=== PATIENT | female | born 1940 | race Caucasian/White ===

== ENCOUNTER 2016-07-23 | Outpatient (CLI) | payer MEDICARE, OTHER | END 2016-07-23 07:57 | disposition critical access hospital (66) | CPT/HCPCS: A0425; A0429 ==

== ENCOUNTER 2016-07-23 08:14 | Observation (INO) | payer MEDICARE, OTHER ==
[2016-07-23] MEDS ORDERED: LORazepam 2 MG/ML SYRINGE ONE ×3 (15:59→17:55)
[2016-07-23] MEDS ORDERED: SODIUM CHLORIDE FLUSH 0.9% 10 ML SYRINGE IVP PRN (16:10)
[2016-07-23] MEDS ORDERED: HYDROcod/ACETAM 5/325 MG TABLET PO PRN (16:10)
[2016-07-23] MEDS ORDERED: ONDANSETRON 4 MG/2 ML VIAL IVP PRN (16:10)
[2016-07-23] MEDS ORDERED: ACETAMINOPHEN 325 MG TABLET PO PRN (16:10)
[2016-07-23] MEDS ORDERED: LORazepam 2 MG/ML SYRINGE IVP PRN (16:11)
[2016-07-23] MEDS: SODIUM CHLORIDE FLUSH 0.9% 10 ML SYRINGE IVP SCH (21:37)
[2016-07-23] MEDS ORDERED: OLANZapine 10 MG VIAL IM ONE (22:07)
[2016-07-23] MEDS ORDERED: WATER FOR INJECTION,STERILE 10 ML ONE (22:35)
[2016-07-24] MEDS: SODIUM CHLORIDE FLUSH 0.9% 10 ML SYRINGE IVP SCH (06:02)
[2016-07-24] MEDS ORDERED: NAMENDA 21 MG PO SCH (09:00)
[2016-07-24] MEDS ORDERED: ENOXAPARIN 40 MG/0.4 ML SYRINGE SUBQ SCH (09:00)
[2016-07-24] MEDS ORDERED: POLYETHYLENE GLYCOL 3350 17 GM PACKET PO SCH (09:00)
== END 2016-07-24 13:54 | disposition home or self-care (01) ==
DX: R55 Syncope and collapse (principal); I10 Essential (primary) hypertension; G30.9 Alzheimer's disease, unspecified; Z79.899 Other long term (current) drug therapy; I65.23 Occlusion and stenosis of bilateral carotid arteries
CPT/HCPCS: 36415; 70450; 71020; 80053; 80061; 81003; 82607; 82746; 83690; 84484; 85025; 93010; 93306; 93880; 96360; 96372; 96374; 99284; G0378; J2060

== ENCOUNTER 2016-10-14 08:31 | Outpatient (CLI) | payer MEDICARE, OTHER | END 2016-10-14 08:32 | disposition critical access hospital (66) | DX: R55 Syncope and collapse (principal); W18.39XA Other fall on same level, initial encounter; Y92.010 Kitchen of single-family (private) house as the place of occurrence of the external cause | CPT/HCPCS: A0425; A0429 ==

== ENCOUNTER 2016-10-14 08:51 | Emergency (ER) | payer MEDICARE, OTHER ==
--- NOTE | 2016-10-14 09:59 | ED Physician Documentation ---
PD HPI SYNCOPE - Stated complaint Stated Complaint: SYNCOPE - Chief complaint Chief Complaint: Neuro - History obtained from History obtained from: Patient - History of Present Illness Witnessed: Witnessed (by her ) Timing - onset: How many minutes ago (20) Duration: Minutes Preceding symptoms: Unknown (she does not verbalize well due to Parkinsons but is very active around the house.) Associated symptoms: No: Seizure ( says she felt unusual abruptly, say ithose), Headache, Chest pain Contributing factors: No: Recent med change, Just stood up (she was standing in the kitchen, when she had heavy sigh, and seemed to catch her breath. Then eyes rolled back and she then fell to the floor. Had snoring type breathing for a minute or so. No discoloration. 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 No epscific finding.) Recently seen: Not recently seen Review of Systems Constitutional: denies: Fever Nose: denies: Rhinorrhea / runny nose, Congestion Throat: denies: Swollen tonsils Cardiac: denies: Chest pain / pressure Respiratory: denies: Dyspnea, Cough GI: denies: Abdominal Pain, Vomiting, Diarrhea Skin: denies: Rash, Lesions Neurologic: denies: Focal weakness, Numbness PD PAST MEDICAL HISTORY - Past Medical History Neuro: Dementia - Present Medications Home Medications: Ambulatory Orders Medication Instructions Recorded Confirmed Aspirin [Aspirin EC] 81 mg PO DAILY #30 tablet. 07/24/16 Memantine HCl [Namenda Xr] 28 mg PO DAILY 07/24/16 07/24/16 Valacyclovir HCl [Valacyclovir] 1,000 mg PO TID 07/24/16 07/24/16 - Allergies Allergies/Adverse Reactions: Allergies Allergy/AdvReac Type Severity Reaction Status Date / Time No Known Drug Allergies Allergy Verified 10/14/16 11:56 - Social History Does the pt smoke?: No Smoking Status: Never smoker PD ED PE NORMAL - Vitals Vital signs reviewed: Yes - General General: No acute distress, Well developed/nourished, Other (placing and wiping the bedsheet, with some folding and unfolding. She was able to stand and bear weight.) - HEENT HEENT: Ears normal, Moist mucous membranes, Pharynx benign - Neck Neck: Supple, no meningeal sign, No adenopathy - Cardiac Cardiac: RRR, No gallop - Respiratory Respiratory: Clear bilaterally - Abdomen Abdomen: Soft, Non tender - Female Female : Pt declined - Back Back: No spinal TTP - Derm Derm: Normal color, Warm and dry - Extremities Extremities: No tenderness to palpate, Normal ROM s pain - Neuro Neuro: Alert and oriented X 3, No motor deficit - Psych Psych: Other (does not talk interactions) Results - Vitals Vitals: Vital Signs - 24 hr 10/14/16 10/14/16 10/14/16 08:54 11:16 12:22 Temperature 36.6 C Heart Rate 87 63 71 Respiratory 18 18 16 Rate Blood Pressure 127/87 H 112/66 117/61 O2 Saturation 96 99 96 Oxygen O2 Source Room air - Labs Labs: Laboratory Tests 10/14/16 10/14/16 10/14/16 11:13 11:13 11:13 WBC 8.1 RBC 4.16 L Hgb 14.2 Hct 41.6 MCV 100.0 H MCH 34.2 H MCHC 34.2 RDW 13.4 Plt Count 215 MPV 9.5 Neut # 6.7 H Lymph # 0.9 L [place] # 0.5 Eos # 0.0 Baso # 0.0 Absolute Nucleated RBC 0.00 Nucleated RBCs 0.0 Sodium 136 Potassium 4.2 Chloride 100 L Carbon Dioxide 28 Anion Gap 8.0 BUN 17 Creatinine 0.6 Estimated GFR (MDRD) 97 Glucose 101 H Calcium 9.3 Magnesium 2.0 Total Bilirubin 1.0 AST 49 H ALT 42 Alkaline Phosphatase 59 Total Protein 6.4 L Albumin 4.0 Globulin 2.4 Albumin/Globulin Ratio 1.7 Lipase 24 Prolactin 8.82 - Rads (name of study) head CT Radiology: Prelim report reviewed (age related changes, no acute process. ) PD MEDICAL DECISION MAKING - ED course Complexity details: considered differential (2 episodes of abrupt syncope with then improved after several minutes. Had evaluation for brain and cardiovascular causes (MRI, ECG, ECHO, labs). ), d/w patient Departure - Departure Disposition: 01 Home, Self Care Clinical Impression: Episode of syncope Qualifiers: Syncope type: unspecified Qualified Code(s): R55 - Syncope and collapse Condition: Stable Record reviewed to determine appropriate education?: Yes Instructions: ED Fainting Unkn Cause Follow-Up: Katrin Stewart MD [Primary Care Provider] - Comments: Continue current medications, and drink lots of fluids. Follow up with PMD next week, call for an appt. Consider evaluating for potential seizure as a cause. Discharge Date/Time: 10/14/16 12:24
[2016-10-14 11:30] LABS: BASOPHILS % (AUTO) 0.4 %; EOSINOPHILS % (AUTO) 0.4 %; HCT - HEMATOCRIT 41.6 % (37.0-47.0); HGB - HEMOGLOBIN 14.2 g/dL (12.0-16.0); LYMPHOCYTES # (AUTO) 0.9 10^3/uL (1.5-3.5); LYMPHOCYTES % (AUTO) 10.5 %; MEAN CORPUSCULAR HEMOGLOBIN 34.2 pg (27.0-31.0); MEAN CORPUSCULAR HGB CONC 34.2 g/dL (32.0-36.0); MEAN PLATELET VOLUME 9.5 fL (7.9-10.8); MONOCYTES # (AUTO) 0.5 10^3/uL (0.0-1.0); MONOCYTES % (AUTO) 6.3 %; NEUTROPHILS # (AUTO) 6.7 10^3/uL (1.5-6.6); NEUTROPHILS % (AUTO) 82.4 %; RED BLOOD COUNT 4.16 10^6/uL (4.20-5.40); RED CELL DISTRIBUTION WIDTH 13.4 % (12.0-15.0); UNCORRECTED WHITE BLOOD COUNT 8.1 x10^3/uL; WHITE BLOOD COUNT 8.1 x10^3/uL (4.8-10.8)
--- NOTE | 2016-10-14 11:44 | CT Preliminary Report ---
Exam: CT Head W/O IMPRESSION: 1. Generalized age-related cortical atrophic changes. 2. No acute intracranial hemorrhage or depressed calvarial fracture evident. [facility] SITE ID: [id number]
--- NOTE | 2016-10-14 11:47 | CT Report ---
EXAM: CT HEAD EXAM DATE: 10/14/2016 11:01 AM. CLINICAL HISTORY: Fall/syncope. Confusion. COMPARISON: Head CT 07/23/2016. TECHNIQUE: Multiaxial CT images were obtained from the foramen magnum to the vertex. IV contrast: Non e. Reformats: Coronal. Technologist notes patient was uncooperative. In accordance with CT protocol optimization, one or more of the following dose reduction techniques w ere utilized for this exam: automated exposure control, adjustment of mA and/or KV based on patient s ize, or use of iterative reconstructive technique. FINDINGS: Parenchyma: No intraparenchymal hemorrhage. No evidence of mass, midline shift, or CT findings of acu te infarction. Flynn-white differentiation is distinct. Extraaxial Spaces: Normal for age. No subdural or epidural collections identified. Ventricles: The ventricles and cortical sulci are enlarged, consistent with age-related tissue loss. Sinuses: Imaged paranasal sinuses, orbits, and mastoids show no significant abnormality. Bones: No evidence of fracture or calvarial defect. Other: Diffuse chronic microangiopathic white matter changes are evident. IMPRESSION: 1. Generalized age-related cortical atrophic changes. 2. No acute intracranial hemorrhage or depressed calvarial fracture evident. [facility] Referring Provider Line: [phone] SITE ID: [id number]
[2016-10-14 11:58] LABS: ALBUMIN/GLOBULIN RATIO 1.7 (1.0-2.2); CALCIUM 9.3 mg/dL (8.5-10.3); CREATININE 0.6 mg/dL (0.4-1.0); POTASSIUM 4.2 mmol/L (3.5-5.0); TOTAL PROTEIN 6.4 g/dL (6.7-8.2)
[2016-10-14 12:23] VITALS: BP 117/61
== END 2016-10-14 12:24 | disposition home or self-care (01) ==
LOC: EDUNIT# → ED 08:51
DX: R55 Syncope and collapse (principal); G20 Parkinson's disease; F02.80 Dementia in other diseases classified elsewhere, unspecified severity, without behavioral disturbance, psychotic disturbance, mood disturbance, and anxiety; Z79.82 Long term (current) use of aspirin
CPT/HCPCS: 36415; 70450; 80053; 83690; 83735; 84146; 85025; 99284

== ENCOUNTER 2017-01-12 13:35 | Outpatient (CLI) | payer MEDICARE, OTHER ==
[2017-01-12 19:16] LABS: BASOPHILS % (AUTO) 0.3 %; EOSINOPHILS # (AUTO) 0.1 10^3/uL (0.0-0.7); EOSINOPHILS % (AUTO) 1.1 %; HCT - HEMATOCRIT 41.4 % (37.0-47.0); HGB - HEMOGLOBIN 13.9 g/dL (12.0-16.0); LYMPHOCYTES # (AUTO) 1.5 10^3/uL (1.5-3.5); LYMPHOCYTES % (AUTO) 24.3 %; MEAN CORPUSCULAR HEMOGLOBIN 34.2 pg (27.0-31.0); MEAN CORPUSCULAR HGB CONC 33.7 g/dL (32.0-36.0); MEAN CORPUSCULAR VOLUME 101.5 fL (81.0-99.0); MEAN PLATELET VOLUME 10.1 fL (7.9-10.8); MONOCYTES # (AUTO) 0.6 10^3/uL (0.0-1.0); MONOCYTES % (AUTO) 9.6 %; NEUTROPHILS # (AUTO) 3.9 10^3/uL (1.5-6.6); NEUTROPHILS % (AUTO) 64.7 %; NUCLEATED RED BLOOD CELLS AUTO 0.1 /100WBC; RED BLOOD COUNT 4.08 10^6/uL (4.20-5.40); RED CELL DISTRIBUTION WIDTH 13.2 % (12.0-15.0)
[2017-01-12 19:35] LABS: ALBUMIN/GLOBULIN RATIO 1.7 (1.0-2.2); BILIRUBIN,TOTAL 0.9 mg/dL (0.2-1.0); CALCIUM 9.4 mg/dL (8.5-10.3); CREATININE 0.8 mg/dL (0.4-1.0); MAGNESIUM 2.2 mg/dL (1.7-2.8); POTASSIUM 4.1 mmol/L (3.5-5.0); TOTAL PROTEIN 6.9 g/dL (6.7-8.2)
[2017-01-12 19:45] LABS: HEMOGLOBIN A1C 0.53 g/dL
== END 2017-01-12 13:36 | disposition home or self-care (01) ==
LOC: LAB.N 13:35
PROVIDERS: ATTEND Internal Medicine Geriatric Medicine
DX: Z00.00 Encounter for general adult medical examination without abnormal findings (principal); R73.01 Impaired fasting glucose; H61.21 Impacted cerumen, right ear
CPT/HCPCS: 36415; 80053; 83036; 83735; 85025

== ENCOUNTER 2017-04-06 15:31 | Outpatient (CLI) | payer MEDICARE, OTHER ==
[2017-04-06 13:21] LABS: BASOPHILS % (AUTO) 0.3 %; EOSINOPHILS # (AUTO) 0.1 10^3/uL (0.0-0.7); HCT - HEMATOCRIT 41.5 % (37.0-47.0); LYMPHOCYTES % (AUTO) 17.2 %; MEAN CORPUSCULAR HGB CONC 33.7 g/dL (32.0-36.0); MEAN CORPUSCULAR VOLUME 98.1 fL (81.0-99.0); MEAN PLATELET VOLUME 10.3 fL (7.9-10.8); MONOCYTES # (AUTO) 0.4 10^3/uL (0.0-1.0); MONOCYTES % (AUTO) 7.2 %; NEUTROPHILS # (AUTO) 4.1 10^3/uL (1.5-6.6); NEUTROPHILS % (AUTO) 74.3 %; RED BLOOD COUNT 4.24 10^6/uL (4.20-5.40); RED CELL DISTRIBUTION WIDTH 13.1 % (12.0-15.0); UNCORRECTED WHITE BLOOD COUNT 5.6 x10^3/uL; WHITE BLOOD COUNT 5.6 x10^3/uL (4.8-10.8)
== END 2017-04-06 15:32 | disposition home or self-care (01) ==
LOC: LAB.N 15:31
PROVIDERS: ATTEND Internal Medicine Geriatric Medicine
DX: R79.89 Other specified abnormal findings of blood chemistry (principal)
CPT/HCPCS: 36415; 82607; 82746; 85025

== ENCOUNTER 2018-04-11 15:07 | Outpatient (CLI) | payer MEDICARE, OTHER | END 2018-04-11 15:08 | disposition critical access hospital (66) | LOC: EMS 15:07 | PROVIDERS: ATTEND Surgery | DX: R56.9 Unspecified convulsions (principal); R03.1 Nonspecific low blood-pressure reading | CPT/HCPCS: A0425; A0427 ==

== ENCOUNTER 2018-04-11 15:26 | Emergency (ER) | payer MEDICARE, OTHER ==
[2018-04-11] MEDS ORDERED: LORazepam 2 MG/ML VIAL IVP STA (15:40)
[2018-04-11 15:57] LABS: BASOPHILS % (AUTO) 0.4 %; EOSINOPHILS % (AUTO) 0.1 %; HGB - HEMOGLOBIN 13.8 g/dL (12.0-16.0); LYMPHOCYTES # (AUTO) 0.8 10^3/uL (1.5-3.5); LYMPHOCYTES % (AUTO) 7.3 %; MEAN CORPUSCULAR HEMOGLOBIN 30.2 pg (27.0-31.0); MEAN CORPUSCULAR HGB CONC 33.9 g/dL (32.0-36.0); MEAN PLATELET VOLUME 9.6 fL (7.9-10.8); MONOCYTES # (AUTO) 0.6 10^3/uL (0.0-1.0); MONOCYTES % (AUTO) 5.5 %; NEUTROPHILS # (AUTO) 9.2 10^3/uL (1.5-6.6); NEUTROPHILS % (AUTO) 86.7 %; PLT - PLATELET COUNT 252 10^3/uL (130-450); RED BLOOD COUNT 4.58 10^6/uL (4.20-5.40); WHITE BLOOD COUNT 10.6 x10^3/uL (4.8-10.8)
[2018-04-11 16:12] LABS: ACETAMINOPHEN < 10 ug/mL (10-30); ALBUMIN/GLOBULIN RATIO 1.4 (1.0-2.2); ALKALINE PHOSPHATASE 73 IU/L (42-121); ALT ALANINE AMINOTRANSFERASE 20 IU/L (10-60); AST ASPARTATE AMINOTRANSFERASE 26 IU/L (10-42); BILIRUBIN,TOTAL 0.8 mg/dL (0.2-1.0); BUN - BLOOD UREA NITROGEN 22 mg/dL (6-20); CARBON DIOXIDE - CO2 26 mmol/L (21-32); CHLORIDE 105 mmol/L (101-111); CREATININE 0.7 mg/dL (0.4-1.0); GFR - MDRD 81 (>89); GLUCOSE 137 mg/dL (70-100); LIPASE 22 U/L (22-51); SALICYLATE < 6.0 mg/dL; SODIUM 138 mmol/L (135-145); TOTAL PROTEIN 6.9 g/dL (6.7-8.2)
--- NOTE | 2018-04-11 16:42 | CT Report ---
Reason: sz Procedure Date: 04/11/2018 Accession Number: [id number] / [id number] Procedure: CT - Head W/O CPT Code: FULL RESULT: EXAM: CT HEAD EXAM DATE: 04/11/2018 04:16 PM. CLINICAL HISTORY: Seizure. COMPARISON: HEAD W/O 10/14/2016 11:00 AM. TECHNIQUE: Multiaxial CT images were obtained from the foramen magnum to the vertex. Reformats: Sagittal and coronal. IV contrast: None. In accordance with CT protocol optimization, one or more of the following dose reduction techniques were utilized for this exam: automated exposure control, adjustment of mA and/or KV based on patient size, or use of iterative reconstructive technique. FINDINGS: Parenchyma: No intraparenchymal hemorrhage. No evidence of mass, midline shift, or CT findings of infarction. Flynn-white differentiation is distinct. Minimal hypodensity in the bilateral periventricular white matter as before suggesting chronic small vessel ischemic change. Extraaxial Spaces: Normal for age. No subdural or epidural collections identified. Ventricles: Mild generalized ventriculomegaly, as before. Sinuses and Orbits: Imaged paranasal sinuses, orbits, and mastoids show no significant abnormality. Bones: No evidence of fracture or calvarial defect. Other: None. IMPRESSION: 1. Mild ventriculomegaly out of proportion to sulcal prominence, as before. The findings may reflect central-predominant cerebral volume loss or normal pressure hydrocephalus. 2. Minimal bilateral periventricular white matter hypodensity as before consistent with chronic small vessel ischemic change. 3. No focal lesions are identified to explain seizure. [facility]
[2018-04-11 16:48] LABS: MUDS CUTOFF CONCENTRATIONS CUTOFF CONC BELOW:
[2018-04-11 16:50] LABS: BILIRUBIN,URINE NEGATIVE (NEGATIVE); GLUCOSE, URINE (UA) NEGATIVE (NEGATIVE); KETONES,URINE (UA) NEGATIVE (NEGATIVE); LEUKOCYTE ESTERASE, URINE NEGATIVE (NEGATIVE); NITRITE,URINE NEGATIVE (NEGATIVE); OCCULT BLOOD,URINE SMALL (NEGATIVE); PROTEIN,URINE TRACE mg/dL (NEGATIVE); UROBILINOGEN,URINE 0.2 (NORMAL) E.U./dL (NORMAL)
[2018-04-11 16:51] LABS: CLARITY,URINE CLEAR (CLEAR)
[2018-04-11 17:00] LABS: BACTERIA,URINE Rare /HPF (None Seen); RBC,URINE 0-5 /HPF (0-5); SQUAMOUS EPITHELIAL CELL,UR MOD Squamous (<= Few)
[2018-04-11 17:09] LABS: AMPHETAMINE SCREEN,URINE NEGATIVE (NEGATIVE); BENZODIAZEPINES SCREEN, URINE NEGATIVE (NEGATIVE); COCAINE SCREEN URINE NEGATIVE (NEGATIVE); METHADONE SCREEN, URINE NEGATIVE (NEGATIVE); METHAMPHETAMINES SCREEN, URINE NEGATIVE (NEGATIVE); OPIATE SCREEN, URINE NEGATIVE (NEGATIVE); OXYCODONE SCREEN, URINE NEGATIVE (NEGATIVE); PROPOXYPHENE SCREEN, URINE NEGATIVE (NEGATIVE); TRICYCLIC ANTIDEPRESSANT,URINE NEGATIVE (NEGATIVE)
--- NOTE | 2018-04-11 17:10 | ED Physician Documentation ---
History of Present Illness - Stated complaint Stated Complaint: SZ - Chief complaint Chief Complaint: Neuro - Additonal information Additional information: 77-year-old female with a history of dementia and seizures was sent in from her senior living for evaluation of a seizure which occurred today. The seizure lasted longer than her typical seizures. Reports of tongue biting. 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 07/24/16 04/28/17 Memantine HCl [Namenda Xr] 28 mg PO DAILY 07/24/16 04/28/17 Valacyclovir HCl [Valacyclovir] 1,000 mg PO TID 07/24/16 04/28/17 Levetiracetam [Keppra] 500 mg PO BID #60 tablet 04/28/17 - Allergies Allergies/Adverse Reactions: Allergies Allergy/AdvReac Type Severity Reaction Status Date / Time No Known Drug Allergies Allergy Verified 04/11/18 15:32 - Social History Does the pt smoke?: No Smoking Status: Never smoker Does the pt drink ETOH?: No Does the pt have substance abuse?: No - Immunizations Immunizations are current?: Yes - POLST Patient has POLST: Yes PD ED PE NORMAL - General General: Other (77-year-old alert appearing female who is cachectic, chronically ill-appearing but appears to be in no significant acute distress) - HEENT HEENT: PERRL, EOMI, Other (The patient has multiple bruises on her face all of which appear to be old. No acute lacerations, step-offs or obvious deformities.) - Cardiac Cardiac: RRR, Strong equal pulses - Respiratory Respiratory: No respiratory distress, Clear bilaterally - Abdomen Abdomen: Soft, Non tender, Non distended - Derm Derm: Other (No lacerations) - Extremities Extremities: No deformity, Other (Muscle wasting in the upper and lower extremities) - Neuro Neuro: Other (The patient's alert, no obvious acute focal neurologic finding. The history is significant limited secondary to the patient's severe dementia) Results - Vitals Vitals: Vital Signs - 24 hr 04/11/18 04/11/18 04/11/18 15:27 16:30 17:32 Temperature 36.8 C Heart Rate 94 96 99 Respiratory 20 18 19 Rate Blood Pressure 125/85 H 129/80 138/95 H O2 Saturation 96 96 96 Oxygen O2 Source Room air - Labs Labs: Laboratory Tests 04/11/18 04/11/18 04/11/18 15:50 15:50 16:40 WBC 10.6 RBC 4.58 Hgb 13.8 Hct 40.7 MCV 89.0 MCH 30.2 MCHC 33.9 RDW 13.0 Plt Count 252 MPV 9.6 Neut # (Auto) 9.2 H Lymph # (Auto) 0.8 L [place] # (Auto) 0.6 Eos # (Auto) 0.0 Baso # (Auto) 0.0 Absolute Nucleated RBC 0.00 Nucleated RBC % 0.0 Sodium 138 Potassium 3.8 Chloride 105 Carbon Dioxide 26 Anion Gap 7.0 BUN 22 H Creatinine 0.7 Estimated GFR (MDRD) 81 L Glucose 137 H Calcium 9.0 Total Bilirubin 0.8 AST 26 ALT 20 Alkaline Phosphatase 73 Total Protein 6.9 Albumin 4.0 Globulin 2.9 Albumin/Globulin Ratio 1.4 Lipase 22 Urine Color YELLOW Urine Clarity CLEAR Urine pH 6.0 Ur Specific [place] 1.025 Urine Protein TRACE Urine Glucose (UA) NEGATIVE Urine Ketones NEGATIVE Urine Occult Blood SMALL H Urine Nitrite NEGATIVE Urine Bilirubin NEGATIVE Urine Urobilinogen 0.2 (NORMAL) Ur Leukocyte Esterase NEGATIVE Urine RBC 0-5 Urine WBC 0-3 Ur Squamous Epith Cells MOD Squamous H Urine Bacteria Rare Ur Microscopic Review INDICATED Urine Culture Comments NOT INDICATED Salicylates < 6.0 Urine Opiates Screen NEGATIVE Ur Oxycodone Screen NEGATIVE Urine Methadone Screen NEGATIVE Ur Propoxyphene Screen NEGATIVE Acetaminophen < 10 L Ur Barbiturates Screen NEGATIVE Ur Tricyclics Screen NEGATIVE Ur Phencyclidine Scrn NEGATIVE Ur Amphetamine Screen NEGATIVE U Methamphetamines Scrn NEGATIVE U Benzodiazepines Scrn NEGATIVE Urine Cocaine Screen NEGATIVE U Cannabinoids Screen NEGATIVE - Rads (name of study) CT head Radiology: Final report received (1. Mild ventriculomegaly out of proportion to sulcal prominence, as before. The findings may reflect central-predominant cerebral volume loss or normal pressure hydrocephalus. 2. Minimal bilateral periventricular white matter hypodensity as before consistent with chronic small vessel ischemic change. 3. No focal lesions are identified to explain seizure. ) PD MEDICAL DECISION MAKING - ED course ED course: The patient's workup does not reveal any significant acute abnormality. The findings seen on CT scan appear to be similar to prior CTs per the radiology report. The patient's family is at the bedside. The patient's son reports that the patient appears to be at her baseline just sleepier than normal secondary to receiving the Ativan. The patient does have a neurologist who is planning to order an outpatient MRI to further evaluate the patient. I recommended that they have this performed as an outpatient. The patient currently appears stable for discharge. There is no findings that would necessitate admission to the hospital or acute transfer. I discussed warning signs and recommended returning to the emergency department for any worsening or any concerns. Departure - Departure Disposition: 01 Home, Self Care Clinical Impression: Seizure Condition: Good Instructions: ED Seizure Recurrent Follow-Up: Katrin Stewart MD [Primary Care Provider] - Comments: Please follow-up with your neurologist, Please have the MRI that your neurologist wanted performed as an outpatient. Please return to the emergency department immediately for worsening symptoms or new concerns.
[2018-04-11 18:39] VITALS: BP 145/83
== END 2018-04-11 18:39 | disposition home or self-care (01) ==
LOC: EDUNIT# → ED 15:26
DX: G40.909 Epilepsy, unspecified, not intractable, without status epilepticus (principal); F03.90 Unspecified dementia, unspecified severity, without behavioral disturbance, psychotic disturbance, mood disturbance, and anxiety
CPT/HCPCS: 36415; 70450; 80053; 81001; 83690; 85025; 96374; 99284; J2060; 80306; 80307; 80329; 81003; 87086

== ENCOUNTER 2018-11-02 15:53 | Outpatient (CLI) | payer MEDICARE, OTHER ==
--- NOTE | 2018-11-02 18:02 | CONSULTATION NOTE ---
Palliative Care Consultation - Referral Referring Provider: Dr Katrin Stewart in [facility] Time of Visit: Mon11/02/2018. Referral setting: Assisted living ([facility]) - Information Sources Records reviewed: RN notes reviewed, Previous records reviewed History/Review of Systems obtained from: Patient, Family Exam limitations: Clinical condition (Advanced dementia, aphasia) - History of Present Illness Brief History of Present Illness: 78-year-old female with dementia and seizure disorder, with acute, increased decline in functionality, cognition and appetite over the past week. [facility]. Her devoted visits her daily. Medical history: Alzheimer's dementia; seizure disorder; myoclonus; HTN. Her , Ralph, cared for for the patient at home for many years, until the dementia progressed (wandering, etc) to the point she was no longer safe at home. Ralph moved her to [facility] in September 2017. He has kept very meticulous records of her progress, and has noted significant decline over the past month, and particularly over the past week. She was ambulatory with assistance up until about 3 weeks ago; she is now unable to bear weight or coordinate her feet and is now wheelchair bound. She is now nearly completely non-verbal, with 1-3 random recognizable words. Last month was the last time he recalls her exhibiting any coherent verbalization. Previously she would eat when she was hand-fed; she went on to pureed foods on October 24. She hadn't eaten any food yesterday and Ralph believes she has basically had no oral intake in the past few days. She weighs 100.1 lbs today. Her weight ranged from 102-107 lbs between September 2017 and September 2018. Previous baseline was 120-125 lbs during most of her adult life. Ralph has categorized her energy levels from Energizer Bunny (good energy level) to Mellow Maid (calm, quiet) to Sleeping Beauty (somnolent, non-rousable). His records show a steady change from mostly Energizer Bunny days, then a shift toward mostly Mellow Maid days, and now most days she is Sleeping Beauty. Shes had relatively few ED visits: One in Mar 2018 for seizure, and 3 in Jun, Sep, Apr 2017 for seizure/syncope. Patient has history of oral herpes simplex and has been on acyclovir (and previously valcyclovir) for several years. Ralph wants to discontinue that and Trazodone as not useful. We will continue Keppra for her seizures. Patient was sleeping during the first part of the visit, but did rouse and was alert and pleasant for the remainder of the visit. Ralph said today she was more interactive with him, and with me, than she's been for awhile. We transferred her out of bed (she requires complete assist, has no weight- bearing ability) into her W/C to get her weight. She was able to make some eye contact; exhibiti mild to moderate myoclonus. She reaches out to touch and handle things: my badge, my bag, my hair. Unable to follow directions. No resistance or agitation, cooperated with the assessment. 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 They have known each other since the age of 15. Her still remembers the first time he ever saw her, when she walked into his middle school class room. They got after their yael year of college. 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 She was raised by her Aunt and has 4 female cousins who are essentially her si sters. She also has one male cousin. She's originally from [place], moved to [place], then to [place], [place], where she met Ralph. They both went to [employer]. They adopted two foster boys, one as a baby, and one as a 15 year old. One son (adopted at age 15) is still involved in their lives; the other son has been out of touch for years. He is a sociopathic, charming con man, as described by Ralph. 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 Her students loved her. They had an active, happy life together: hiking, sailing, scuba, travel. The patient loved fabrics and textures; she sewed, crotcheted, wove, and knitted. Family History - Family History Family History Comment/Other: Father unknown. Mother (who didn't raise her) age 59 of breast cancer. Her aunt who raised her age 94 of Alzheimer's, as did another aunt. Both were her mother's sisters. Medications/Allergies - Medications Home Medications: Ambulatory Orders Medication Instructions Recorded Confirmed Levetiracetam [Keppra] 500 mg PO BID #60 tablet 04/28/17 Acetaminophen 650 mg PO Q6H PRN 11/02/18 11/02/18 Bisacodyl Supp [Dulcolax Supp] 10 mg [place] DAILY PRN 11/02/18 11/02/18 Levetiracetam [Keppra] 1,000 mg PO BID MDD 10mL is 1000mg 11/02/18 11/02/18 Loperamide [Imodium] 2 mg PO DAILY PRN MDD 8 tabs max 11/02/18 11/02/18 per 24 hrs Magnesium Hydroxide [Milk of 30 ml PO DAILY PRN MDD Use if no 11/02/18 11/02/18 Magnesia] BM in 3 days - Allergies Allergies/Adverse Reactions: Allergies Allergy/AdvReac Type Severity Reaction Status Date / Time No Known Drug Allergies Allergy Verified 04/11/18 15:32 Review of Systems - Constitutional Constitutional: reports: Poor appetite, Weight loss (100.1 lbs 11/02/18. It ranged from 102-107 lbs between September 2017 and September 2018. Previous baseline was 120-125 lbs in her adult life.) - Respiratory Respiratory: denies: Cough - Gastrointestinal Gastrointestinal: reports: Poor appetite. denies: Constipation - Genitourinary Genitourinary: reports: Incontinence - Musculoskeletal Musculoskeletal: reports: Assistive devices (No longer ambulatory; now in wheelchair since 3 weeks ago), Transfer issues (Now needs complete assistance), Other (Seizure disorder; myoclonus) - Neurological Neurological: reports: General weakness, Memory problems, Other (expressive apha carley) - Psychiatric Psychiatric: denies: Aggitation, Behavior disturbances - Other Findings Other Findings: Limited ROS. Physical Exam - Vital Signs Temperature: 96.8 F Pulse Rate: 74 O2 Saturation: 95 (room air) Blood Pressure: 114/76 - Physical Exam General Appearance: positive: No acute distress, Alert, Other (Initially asleep, but then roused and was the most active and engaged she's been for a while) Eyes Bilateral: positive: Normal inspection ENT: positive: No signs of dehydration Neck: positive: Trachea midline Cardiovascular: positive: Irregular (mild irregularity) Respiratory: positive: Chest non-tender, No respiratory distress, Other (unable to hear breath sounds; breathing is too shallow and she can't follow directions) Skin: positive: Dryness (dry skin on feet and between toes.) Extremities: positive: No pedal edema, Other (toesnails slightly yellow, only mildly fungal.) Neurologic/Psychiatric: positive: Disoriented to person, Disoriented to place, Disoriented to time, Unintelligible speech Palliative Care - POLST Patient has POLST: Yes POLST Status: DNR, Comfort Measures Performance Status: rapidly declining functionality is no longer ambulatory cannot bear weight or coordinate her feet requires full assist for transfers to W/C requires full assist for all ADLs, and for feeding anorexic, not eating x a few days excessive sleep increased weakness FAST 7D - Palliative Care Discussion: Patient's is extremely caring and devoted to taking care of her. He visits daily and has meticulous notes on all aspects of her condition. He recognized she is has deteriorated significantly over the past month and especially over the past week. She has not eaten for the past few days and he wonders if she'll bounce back, as she has in the past, or if her decline will continue to spiral downward. She lost only one lb between 09/30 and 11/02; she weighs 101 lbs. today. If she's not exactly meeting medical criteria for Hospice, she's extremely close. Ralph is supportive of moving her on to Hospice as soon as she qualifies. He's familiar with the service, since her aunt (the woman who raised her) on Hospice at age 94. She was at an actual Hospice facility. Ralph has thought about "for years," because of her quality of life. He feels he is ready for it whenever it comes. He assures me he has a good support network, his 's "sister cousins" whom he is close with, and who live in [facility] He wants her kept comfortable and to discontinue unnecessary medications. We took her off trazodone and valcyclovir which she had been using for chronic HSVI oral lesions. We kept her on Keppra due to her seizures. I will start her on comfort meds morphine and lorazepam, as tools for the staff since Ralph wants no hospital transfers, even if she has a seizure. We completed and signed a new POLST: DNR and comfort care with no transfers to hospital. Ralph will continue to closely monitor her oral intake and her weight, and will coordinate with Palliative Care next week for transitioning her to Hospice, assuming her condition does not improve. Results - Lab Results Lab results reviewed: Yes Impression and Recommendations - Palliative Care Impression: 78-year-old female with dementia and seizure disorder, with acute, increased decline in functionality, cognition and appetite over the past week. She is very close to meeting Hospice criteria, if not already there. Her supports transfer to Hospice, goal is to keep her comfortable and have a peaceful end of life transition. New POLST was signed for comfort care. Recommendations/Counseling Done: Seizure disorder: Stable. Ralph wants no more transfers to hospital, even with seizures. Instructions were written for staff. Continue keppra oral solution, 1000mg BID. Anorexia: Patient is refusing food, has not eaten in the past few days. Weight is down to 101 lbs. She was ranging 106-102, but her previous weight was 110 lbs. Years ago it was 120-125 lbs. Ralph continues to try to feed her the puree diet. Advance care planning: Ralph will continue to closely monitor her oral intake and her weight over the next few days (today is Monday), and will coordinate with Palliative Care next week for transitioning her to Hospice, assuming her condition does not improve. She is very close to meeting hospice criteria, if not already there. Palliative care started comfort medications; spouse wants no more transfers to ED/hospital. Start morphine solution 20mg/mL, give 0.25mL (5mg) PO/buccally Q4h prn for pain, agitation, SOA. Start lorazepam ginger 2mg/mL. Give 0.25 mL (0.5 mg) PO/buccally Q2h prn for agitation, anxiety. Follow up next week with Ralph and facility staff on weight loss, oral intake. Time Spent: 75 minutes were spent with more than 50% of the time spent on counseling, education, providing anticipatory guidance, and coordination of care with spouse and facility staff.
== END 2018-11-02 15:54 | disposition home or self-care (01) ==
LOC: PC 15:53
PROVIDERS: ATTEND Nurse Practitioner
DX: Z51.5 Encounter for palliative care (principal); G40.409 Other generalized epilepsy and epileptic syndromes, not intractable, without status epilepticus; R63.0 Anorexia; G30.9 Alzheimer's disease, unspecified; F02.80 Dementia in other diseases classified elsewhere, unspecified severity, without behavioral disturbance, psychotic disturbance, mood disturbance, and anxiety; I10 Essential (primary) hypertension; R53.1 Weakness; R47.01 Aphasia; Z91.83 Wandering in diseases classified elsewhere; Z99.3 Dependence on wheelchair; Z86.19 Personal history of other infectious and parasitic diseases; Z79.899 Other long term (current) drug therapy; Z66 Do not resuscitate

== ENCOUNTER 2018-11-08 09:10 | Outpatient (CLI) | payer MEDICARE, OTHER ==
--- NOTE | 2018-11-08 14:48 | CONSULTATION NOTE ---
Palliative Care Follow Up - Referral Referring Provider: Dr Katrin Stewart Time of Visit: [place] 11/08/18. 9:10 - 9:25 Referral setting: Assisted living ([facility]) - Information Sources Records reviewed: RN notes reviewed, Previous records reviewed History/Review of Systems obtained from: Patient, Family, Nursing Exam limitations: Clinical condition (Advanced Dementia; nonverbal; somnolent) - History of Present Illness Update Brief HPI Update: 78-year-old female with dementia and seizure disorder, with acute, increased de tucker in functionality, cognition and appetite over the past week. She has [facility] living [facility]. Her devoted visits her daily. Medical history: Alzheimer's dementia; seizure disorder; myoclonus; HTN. Patient has rapidly declined functionally in past month and especially past few weeks, refusing feeding, no longer weight bearing, general weakness, cognitive decline. Palliative Care here today to assess her condition and monitor for appropriateness for Hospice Nursing and spouse report some increase in feeding. She doesn't eat breakfast, staff can get her to eat lunch, yesterday 25% Prior to that, spouse said he got her to eat 100% of each meal. He said her weight was 106 lbs the last weekend (today is ). Nursing said her weight was 98.6 lb today. Spouse sees some increase in activity some days; she fluctuates from day to day. Discussed with him about keeping her comfort care for now, or transition to Hospice. Since her weight and LOC/functionality is still fluctuating, we agreed he will closely monitor, particularly her weight. If she drops under 100 lbs and continues refusing most food, will transition her to Hospice. Spouse agreed to this plan. Social History - Living Situation Living arrangement: Assisted living ([facility]) Living Situation: With caregiver(s) Support System: The patient has been 55 years. They have known each other since the age of 15. Her still remembers the first time he ever saw her, when she walked into his middle school class room. They got after their yael year of college. 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 She was raised by her Aunt and has 4 female cousins who are essentially her sisters. She also has one male cousin. She's originally from [place], moved to [place], then to [place], [place], where she met Ralph. They both went to [employer]. They adopted two foster boys, one as a baby, and one as a 15 year old. One son (adopted at age 14) is still involved in their lives; the other son has been out of touch for years. He is a sociopathic, charming con man, as described by Ralph. 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 Her students loved her. They had an active, happy life together: hiking, sailing, scuba, travel. The patient loved fabrics and textures; she sewed, crotcheted, wove, and knitted. Medications/Allergies - Medications Home Medications: Ambulatory Orders Medication Instructions Recorded Confirmed Levetiracetam [Keppra] 500 mg PO BID #60 tablet 04/28/17 11/08/18 Acetaminophen 650 mg PO Q6H PRN 11/02/18 11/08/18 Bisacodyl Supp [Dulcolax Supp] 10 mg [place] DAILY PRN 11/02/18 11/08/18 Levetiracetam [Keppra] 1,000 mg PO BID MDD 10mL is 1000mg 11/02/18 11/08/18 Loperamide [Imodium] 2 mg PO DAILY PRN MDD 8 tabs max 11/02/18 11/08/18 per 24 hrs Magnesium Hydroxide [Milk of 30 ml PO DAILY PRN MDD Use if no 11/02/18 11/08/18 Magnesia] BM in 3 days LORazepam [Lorazepam INTENSOL] 0.25 ml PO Q2H PRN 11/08/18 11/08/18 Morphine Sulfate [Morphine Sulf 0.25 ml PO Q4H PRN 11/08/18 11/08/18 Oral (Roxanol)] - Allergies Allergies/Adverse Reactions: Allergies Allergy/AdvReac Type Severity Reaction Status Date / Time No Known Drug Allergies Allergy Verified 04/11/18 15:32 Review of Systems - Constitutional Constitutional: reports: Fatigue, Weakness, Poor appetite, Weight loss (98.2 lbs 11/08/18, reported by nursing. Ralph said she was 106 lbs over the weekend. 100.1 lbs 11/02/18. It ranged from 102-107 lbs between September 2017 and September 2018. Previous baseline was 120-125 lbs in her adult life.) - Respiratory Respiratory: denies: Cough, Sputum production - Gastrointestinal Gastrointestinal: denies: Constipation - Genitourinary Genitourinary: reports: Incontinence - Musculoskeletal Musculoskeletal: reports: Muscle weakness, Assistive devices (Now non- ambulatory, in wheelchair x 1 month), Transfer issues (total assistance required), Other (seizure disorder; myoclonus) - Neurological Neurological: reports: General weakness, Memory problems, Other (expressive aphasia) - Psychiatric Psychiatric: denies: Aggitation, Behavior disturbances - Other Findings Other Findings: Limited ROS Physical Exam - Vital Signs Temperature: 96.7 F Pulse Rate: 91 O2 Saturation: 95 Blood Pressure: 114/86 - Physical Exam General Appearance: positive: No acute distress, Lethargic (sleeping, didn't rouse) ENT: positive: No signs of dehydration Neck: positive: Trachea midline Cardiovascular: positive: Irregular (mild irregulatiry) Respiratory: positive: Chest non-tender, No respiratory distress, Other (lungs clear) Skin: positive: Dryness (on feelt and between toes) Extremities: positive: No pedal edema, Other (toenails slightly hellow, mildly fungal) Neurologic/Psychiatric: positive: Disoriented to person, Disoriented to place, Disoriented to time, Other (sleeping) Palliative Care - POLST Patient has POLST: Yes POLST Status: DNR, Comfort Measures Performance Status: rapid decline of functionality is no longer ambulatory cannot bear weight or coordinate her feet requires full assist for all ADLs, feeding, transfers anorexic refused feeding, then improved in past few days sleeps most of time increased weakness FAST 7D - Palliative Care Discussion: Spouse wants her to be comfortable, without trauma or upsetting moves. He is ready for her to be transitioned to Hospice when medically appropriate. She is, or is very near, to being appropriate for Hospice Since she has stabilized after a period of acute decline over a few weeks' time, we agreed to monitor her, particularly her weight, monitoring if it drops/stays under 100 lbs. In the past few days she has perked up some and started to eat somewhat better. Requires hand feeding. Impression and Recommendations - Palliative Care Impression: 78-year-old female with dementia and seizure disorder, with acute, increased decline in functionality, cognition and appetite recently. Close to meeting Hospice criteria, and Hospice meets their goals of care. Family, staff, and Palliative Care will continue to monitor her appetite, weight, and functional status, for transition to Hospice when appropriate. Recommendations/Counseling Done: Seizure disorder: On keppra oral solution, 1000mg BID. Anorexia: Requires hand feeding. She has improved in past few days, had a few days of eating 100%. Weight looks like it dropped to 98.2 lbs today, but spouse reports it was 106 lbs over the weekend (5 days ago).Previous weight was 110 lbs. Years ago it was 120-125 lbs. Advance care planning: Comfort care and transition her to Hospice when appropriate. Plan is to closely monitor oral intake, weight, and functionality. Comfort meds (liquid morphine and liquid lorazepam) are already on board. Ralph, spouse, closely monitors patient closely, will contact [employer] as needed. Time Spent: 15 minutes were spent with more than 50% of the time spent on counseling, education and coordination of care with spouse and facility staff.
== END 2018-11-08 09:11 | disposition home or self-care (01) ==
LOC: PC 09:10
PROVIDERS: ATTEND Nurse Practitioner
DX: Z51.5 Encounter for palliative care (principal); G30.9 Alzheimer's disease, unspecified; F02.80 Dementia in other diseases classified elsewhere, unspecified severity, without behavioral disturbance, psychotic disturbance, mood disturbance, and anxiety; G40.909 Epilepsy, unspecified, not intractable, without status epilepticus; R63.0 Anorexia; R32 Unspecified urinary incontinence; Z99.3 Dependence on wheelchair; Z66 Do not resuscitate; Z79.891 Long term (current) use of opiate analgesic